=== PATIENT | female | born 1975 | race Caucasian/White ===

== ENCOUNTER → 2017-06-12 | Outpatient (CLI) | payer OTHER ==
--- NOTE | 2017-06-12 16:32 | DI ---
DIAGNOSTIC MAMMOGRAMS, 06/12/2017 9:25 AM: Clinical History: Left breast lump. Prior Exam: This is the baseline mammogram for this patient. Digital 2-D images and digital tomosynthesis scans of the left breast and digital 2-D images of the r ight breast are obtained with the [facility]. C-View images are produced in the same projections as in left breast. CAD review is performed. Breast tissue density is rated as having scattered areas of fibroglandular breast tissue. There is a lobulated 25 x 25 x 30 mm high density lesion in the lower outer quadrant of the left breast posterio rly at approximately the 5:00 position. Digital breast tomosynthesis in the 2 views confirms that the lesion is multilobulated. There is a second smaller 5 mm well-circumscribed lesion located anteriorl y and inferiorly and slightly medial to the larger lesion. In the right breast posteriorly in the lory tral axis on the mediolateral oblique view, there is an ovoid low-density lesion that is well-circums cribed and measures approximately 7 x 12 mm. This lesion is not identified with certainty on the righ t craniocaudal projection. There are no abnormal calcifications in either breast. The skin contours, nipples, and lower axillary regions are also normal. Follow Up: In order to workup the ovoid lesion seen only on the right mediolateral oblique projection , an exaggerated right craniocaudal projection and digital breast tomosynthesis scans of the right br east are recommended in the MLO and exaggerated CC projections. Bilateral breast ultrasound is recomm ended to evaluate both breasts lesions. BIRADS: 0: Incomplete. Need additional imaging evaluation as above. Assessment: Incomplete: Need additional imaging evaluation.
== END ==
LOC: MAMMO 09:20
PROVIDERS: ATTEND Nurse Practitioner Family
DX: N63 Unspecified lump in breast (principal)
CPT/HCPCS: G0204; G0279